=== PATIENT | male | born 1970 | race African-American/Black ===

== ENCOUNTER 2020-05-21 23:11 | Emergency (ER) | payer MEDICAID ==
[~2020-05-21] VITALS: Ht 182.9 cm; Wt 104.3 kg
[~2020-05-21 23:11] MED LIST: 12 HOUR NASAL S30 ML NASAL; ALBUTEROL SULF8.5 GM INH; AZITHROMYCIN250 MG ORAL; BENADRYL25 MG/10 M GT; CEPHALEXIN500 MG ORAL; CLOTRIMAZOLE15 GM TOPIC; NEXAFED30 MG ORAL; PREDNISONE20 MG ORAL
[2020-05-21 23:30] VITALS: BP 139/79
--- NOTE | 2020-05-21 23:30 | NUR ---
ED Nurse Note: Patient walked into ED for c/o R sided abdominal pain that radiates to R flank. He states pain is worse with inspiration. He denies any nausea, vomiting, cough or SOB. Patient does have temp of 100.9F. He is breathing normal and unlabored, NAD noted. He is speaking in full sentences and is very talkative/pleasant with staff. Patient is ambulatory with steady gait. AAOX4. Patient placed in bed, safety measures met. Will continue to monitor.
[2020-05-21] MEDS ORDERED: Pantoprazole Inj IV ONE (23:45)
[2020-05-21 23:57] LABS: BASOPHILS % (AUTO) 0.5 % (0.0-2.0); EOSINOPHILS % (AUTO) 1.2 % (0.0-3.0); HEMATOCRIT 37.2 % (42.0-52.0); HEMOGLOBIN 12.4 G/DL (14.2-18.0); LYMPHOCYTES % (AUTO) 29.8 % (20.0-45.0); MEAN CORPUSCULAR VOLUME 87 FL (80-99); MONOCYTES % (AUTO) 7.9 % (1.0-10.0); NEUTROPHILS % (AUTO) 60.6 % (45.0-75.0); PLATELET COUNT 235 K/UL (150-450); RED BLOOD COUNT 4.27 M/UL (4.70-6.10); RED CELL DISTRIBUTION WIDTH 14.6 % (11.6-14.8); WHITE BLOOD COUNT 5.7 K/UL (4.8-10.8)
[2020-05-21 23:58] LABS: APPEARANCE,URINE CLEAR; BILIRUBIN, URINE NEGATIVE (NEGATIVE); COLOR,URINE PALE YELLOW; GLUCOSE, URINE (UA) NEGATIVE (NEGATIVE); KETONES,URINE NEGATIVE (NEGATIVE); LEUKOCYTE ESTERASE ,URINE NEGATIVE (NEGATIVE); NITRITE,URINE NEGATIVE (NEGATIVE); PH,URINE 5 (4.5-8.0); PROTEIN,URINE NEGATIVE (NEGATIVE); UROBILINOGEN,URINE NORMAL MG/DL (0.0-1.0)
--- NOTE | 2020-05-21 23:59 | Emergency Room Report ---
History of Present Illness General Chief Complaint: Pain Source: Patient Present Illness HPI This is a 50-year-old male with a history of acid reflux. He presents with complaint abdominal pain and right flank pain. He said his acid reflux is acting up. He also very bloated. This bloating occur after eating some tacos. Also reflux been bothering him for the last week or so. Has been on medication he said it did not help. Never had a endoscopy. Also with 2-day history of right flank pain. Worse with inspiration. Worse with movement. No hematuria. No nausea no vomiting. No fever or chills. Pain is 7 out of 10. 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 COVID-19 Screening: Negative COVID-19 COVID-19 Testing Source: [facility] Patient History Past Medical History: see triage record, old chart reviewed, asthma Past Surgical History: none Pertinent Family History: none Social History: Denies: smoking Immunizations: other Reviewed Nursing Documentation: PMH: Agreed; PSxH: Agreed Nursing Documentation-PMH Hx Cardiac Problems: No - GERD Hx Hypertension: No Hx Pacemaker: No Hx Asthma: Yes Hx COPD: No Hx Diabetes: No Hx Cancer: No Hx Gastrointestinal Problems: No Hx Dialysis: No Hx Neurological Problems: No Hx Cerebrovascular Accident: No Hx Seizures: No Review of Systems Eye: Denies: eye pain, blurred vision ENT: Denies: ear pain, nose congestion, throat swelling Respiratory: Denies: cough, shortness of breath Cardiovascular: Denies: chest pain, palpitations Gastrointestinal: Reports: abdominal pain; Denies: diarrhea, nausea, vomiting Musculoskeletal: Denies: back pain, joint pain Skin: Denies: rash Neurological: Denies: headache, numbness Endocrine: Denies: increased thirst, increased urine Hematologic/Lymphatic: Denies: easy bruising All Other Systems: negative except mentioned in HPI Physical Exam Vital Signs Date Time Temp Pulse Resp B/P (MAP) Pulse Ox O2 Delivery O2 Flow Rate FiO2 05/21/20 23:17 98.1 83 22 139/79 (99) 94 Room Air Vitals unremarkable Sp02 EP Interpretation: reviewed, normal General Appearance: well appearing, no apparent distress, alert Head: normocephalic, atraumatic Eyes: bilateral eye PERRL, bilateral eye EOMI ENT: hearing grossly normal, normal pharynx Neck: full range of motion, supple, no meningismus Respiratory: chest non-tender, lungs clear, normal breath sounds Cardiovascular #1: regular rate, rhythm, no murmur Gastrointestinal: normal bowel sounds, non tender, no mass, no organomegaly, no bruit, non-distended Musculoskeletal: back normal, normal range of motion, gait/station normal Psychiatric: mood/affect normal Medical Decision Making Diagnostic Impression: Primary Impression: Colitis ER Course This patient presents with abdominal pain and bloating. Labs unremarkable. CT scan showed colitis. Will discharge home with antibiotics. It consists of recurrent reflux issue, he may need endoscopy and colonoscopy. CT/MRI/US Diagnostic Results CT/MRI/US Diagnostic Results : Imaging Test Ordered: CT abdomen pelvis Impression Read by radiologist. Colitis. Gallstone. Last Vital Signs Date Time Temp Pulse Resp B/P (MAP) Pulse Ox O2 Delivery O2 Flow Rate FiO2 05/21/20 23:17 98.1 83 22 139/79 (99) 94 Room Air Status: improved Disposition: HOME, SELF-CARE Condition: Stable Scripts Omeprazole (OMEPRAZOLE) 40 Mg Capsule.dr 40 MG ORAL TWICE A DAY, #30 CAP Prov: Adis Darnell MD 05/22/20 Hydrocodone/Acetaminophen 5-325* (HYDROCODONE/ACETAMINOPHEN 5-325*) 1 Each Tablet 1 TAB ORAL Q6H PRN for For Pain, #15 TAB 0 Refills Prov: Adis Darnell MD 05/22/20 Metronidazole* (FLAGYL*) 500 Mg Tablet 500 MG ORAL BID, #14 TAB Prov: Adis Darnell MD 05/22/20 Ciprofloxacin Hcl* (CIPROFLOXACIN HCL*) 500 Mg Tablet 500 MG ORAL Q12H, #14 TAB 0 Refills Prov: Adis Darnell MD 05/22/20 Referrals: [facility],REFERRING (PCP) Additional Instructions: Follow-up with your doctor in 7 days. You may need referral to see act tutor for endoscopy and/or colonoscopy. Return if worse. Adis Darnell MD May 21, 2020 23:59
[2020-05-22 00:10] LABS: ANION GAP 8 mmol/L (5-15); BLOOD UREA NITROGEN 10 mg/dL (7-18); CALCIUM 8.4 MG/DL (8.5-10.1); CARBON DIOXIDE 28 MMOL/L (21-32); CHLORIDE 103 MMOL/L (98-107); CREATININE 1.4 MG/DL (0.55-1.30); POTASSIUM 3.5 MMOL/L (3.5-5.1); SODIUM 139 MMOL/L (136-145)
[2020-05-22 00:14] LABS: ALANINE AMINOTRANSFERASE 46 U/L (12-78); ALBUMIN 3.3 G/DL (3.4-5.0); ALBUMIN/GLOBULIN RATIO 0.6 (1.0-2.7); ALKALINE PHOSPHATASE 88 U/L (46-116); ASPARTATE AMINO TRANSFERASE 39 U/L (15-37); BILIRUBIN,TOTAL 0.3 MG/DL (0.2-1.0)
[2020-05-22] MEDS ORDERED: Morphine Sulfate 4mg/ml Inj (IV USE ONLY) IVP ONE (00:15)
--- NOTE | 2020-05-22 00:54 | Diagnostic Imaging Report ---
EXAM: CT Abdomen and Pelvis Without Intravenous Contrast CLINICAL HISTORY: ABD PAIN TECHNIQUE: Axial computed tomography images of the abdomen and pelvis without intravenous contrast. CTDI is 14.80 mGy and DLP is 835.20 mGy-cm. One or more of the following dose reduction techniques were used: automated exposure control, adjustment of the mA and/or kV according to patient size, use of iterative reconstruction technique. COMPARISON: No relevant prior studies available. FINDINGS: Lung bases: Atelectasis in the lung bases. ABDOMEN: Liver: The liver measures 20 cm. Gallbladder and bile ducts: Cholelithiasis. Pancreas: Unremarkable. Spleen: Mildly enlarged spleen measuring 13.5 cm. Adrenals: Unremarkable. Kidneys and ureters: No renal or ureteral stones. No hydronephrosis. Stomach and bowel: Mucosal thickening within the rectum with perirectal fat stranding and enlarged mesorectal lymph nodes. PELVIS: Appendix: Normal appendix. Bladder: Unremarkable. No stones. Reproductive: Unremarkable as visualized. ABDOMEN and PELVIS: Intraperitoneal space: Unremarkable. No free air. No significant fluid collection. Bones/joints: No acute fracture. Soft tissues: Unremarkable. Vasculature: Unremarkable. Lymph nodes: Perirectal adenopathy. IMPRESSION: 1. Mucosal thickening within the rectum with perirectal fat stranding and enlarged mesorectal lymph nodes. Colitis can cause this appearance, potentially inflammatory or less likely infectious. Malignancy is also on the differential and should be excluded given the adenopathy. 2. No renal or ureteral stones. 3. Cholelithiasis. 4. Hepatosplenomegaly.
[2020-05-22] MEDS ORDERED: Ciprofloxacin 500mg tab ORAL ONE (01:00)
[2020-05-22] MEDS ORDERED: metroNIDAZOLE 500mg tab ORAL ONE (01:00)
[2020-05-22] MEDS ORDERED: OMEPRAZOLE40 M1 ORAL (01:02)
[2020-05-22] MEDS ORDERED: CIPROFLOXACIN500 M2 ORAL (01:02)
[2020-05-22] MEDS ORDERED: METRONIDAZOLE500 MG ORAL (01:02)
[2020-05-22] MEDS ORDERED: HYDROCODON-ACE1 EA15 ORAL (01:02)
[2020-05-22 01:15] VITALS: BP 135/78
--- NOTE | 2020-05-22 01:15 | NUR ---
ER DISCHARGE NOTE: Patient is cleared to be discharged per ERMD, pt is aox4, on room air, with stable vital signs. pt was given dc and prescription instructions, pt was able to verbalize understanding, pt id band and iv site removed without complications. pt is able to ambulate with steady gait. pt took all belongings.
== END 2020-05-22 01:15 | disposition home or self-care (01) ==
LOC: EMR 23:37
DX: K52.9 Noninfective gastroenteritis and colitis, unspecified (principal); K21.9 Gastro-esophageal reflux disease without esophagitis; Z88.0 Allergy status to penicillin; K80.20 Calculus of gallbladder without cholecystitis without obstruction; R16.1 Splenomegaly, not elsewhere classified
CPT/HCPCS: 36415; 74176; 80053; 81003; 83690; 85025; 96361; 96374; 96375; J2270; J7030; S0164; Z7502; 99284